=== PATIENT | female | born 1945 | race Caucasian/White ===

== ENCOUNTER → 2018-01-17 | Day surgery (SDC) | payer MEDICARE, OTHER ==
[2018-01-09 12:50] LABS: BASOPHILS % 0.5 % (0.0-1.0); EOSINOPHILS % 0.6 % (0.0-6.0); HEMATOCRIT 33.3 % (34.2-44.1); HEMOGLOBIN 11.6 g/dL (12.0-16.0); LYMPHOCYTES # (AUTO) 2.2 (1.0-3.2); MEAN CORPUSCULAR HEMOGLOBIN 31.3 pg (28-32); MEAN CORPUSCULAR HGB CONC 34.8 g/dL (31-35); MEAN CORPUSCULAR VOLUME 89.8 fL (81-99); MONOCYTES # (AUTO) 0.3 (0.2-0.8); MONOCYTES % 5.4 % (4.4-11.3); NEUTROPHILS # (AUTO) 3.7 (2.1-6.9); NEUTROPHILS % 58.2 % (38.7-80.0); PLATELET COUNT 205 x10e3/uL (140-360); RED BLOOD COUNT 3.71 x10e6/uL (3.6-5.1); RED CELL DISTRIBUTION WIDTH 12.2 % (11.7-14.4)
[~2018-01-17] MED LIST: ASPIR 8181 MG PO; ATORVASTATIN CA10 MG PO; BUTALB-ACETAMI1 EACH PO; DEXILANT60 MG PO; DICYCLOMINE HCL10 MG PO; FOLIC ACID1 MG PO; HYDROCHLOROTHIA25 MG PO; LEVOTHYROXINE50 MCG PO; LIDOCAINE HCL 2% LOCAL INJ 5 ML SDV VIAL INJ ONE; LISINOPRIL10 MG PO; PROPOFOL IV EMULSION 10 MG/ML 50 ML VIAL ONE
== END | disposition home or self-care (01) ==
LOC: OR 08:49
PROVIDERS: ATTEND Internal Medicine Gastroenterology
DX: K22.2 Esophageal obstruction (principal); K21.9 Gastro-esophageal reflux disease without esophagitis; R13.10 Dysphagia, unspecified; K59.09 Other constipation; R94.6 Abnormal results of thyroid function studies; R82.90 Unspecified abnormal findings in urine; R51 Headache; K44.9 Diaphragmatic hernia without obstruction or gangrene; E03.9 Hypothyroidism, unspecified; K29.70 Gastritis, unspecified, without bleeding; Z01.812 Encounter for preprocedural laboratory examination
CPT/HCPCS: 36415; 43233; 43239; 85025; 93005; J2001; 43450

== ENCOUNTER → 2018-05-30 | Outpatient (CLI) | payer MEDICARE, OTHER ==
[~2018-05-30] MED LIST changes: +IOPAMIDOL 370 MG/ML 200 ML INFUS..BTL INJ ONE; -LIDOCAINE HCL 2% LOCAL INJ 5 ML SDV VIAL INJ ONE; -PROPOFOL IV EMULSION 10 MG/ML 50 ML VIAL ONE; +SODIUM CHLORIDE 0.9% 50ML 50 ML ONE
[2018-05-30 10:14] LABS: BLOOD UREA NITROGEN 15 mg/dL (7-26); BUN/CREATININE RATIO 17 (6-25); CREATININE, SERUM 0.89 mg/dL (0.57-1.11); EST GLOMERULAR FILTRATION RATE > 60 ML/MIN (60-)
--- NOTE | 2018-05-30 11:04 | Diagnostic Imaging Report ---
EXAMINATION: CT of the abdomen and pelvis with contrast. TECHNIQUE: Spiral CT images of the abdomen and pelvis were performed from the lung bases to the lesser trochanters after the intravenous administration of 100 cc of Isovue 370 and the oral administration of water. Coronal and sagittal reformatted images were obtained. COMPARISON: None. CLINICAL HISTORY:Generalized abdominal pain DISCUSSION: ABDOMEN/PELVIS: LOWER THORAX:Lung bases are clear. Small bilateral fat-containing posterior diaphragmatic hernias HEPATOBILIARY: Decreased attenuation of the hepatic parenchyma compared to the spleen, consistent with steatosis. No focal hepatic lesions. No intra or extrahepatic biliary ductal dilation. GALLBLADDER: No radio-opaque stones or sludge. No wall thickening. SPLEEN: No splenomegaly. PANCREAS: No focal masses or ductal dilatation. ADRENALS: No adrenal nodules. KIDNEYS/URETERS: No hydronephrosis, stones, or solid mass lesions. Mild left pelviectasis. PELVIC ORGANS/BLADDER: Moderate to marked distention of the bladder. Mild wall thickening in the anterior aspect (series 2, image 60). No focal lesions. No adnexal masses. PERITONEUM/RETROPERITONEUM: No free air or fluid. LYMPH NODES: No intra-abdominal, retroperitoneal, pelvic or inguinal lymphadenopathy. VESSELS: The celiac trunk,superior and inferior mesenteric and bilateral renal arteries are patent The portal, superior mesenteric and splenic veins are patent. GI TRACT: No bowel dilation or evidence of obstruction. No pericolonic inflammatory changes. Mild amount of retained stool in the colon. BONES AND SOFT TISSUE: No aggressive lytic lesions. Multilevel degenerative disc changes in the lumbosacral spine, worse at L4-L5, with marked intervertebral disc space narrowing, vacuum phenomenon and grade 1-2 anterolisthesis of L4 on L5 and associated dextroscoliosis. No soft tissue abnormalities. IMPRESSION: 1. No acute abdominopelvic abnormalities. 2. Hepatic steatosis. 3. Moderate to marked distention of the bladder, with mild wall thickening. No focal lesions are identified. Correlate for cystitis. Signed by: Dr. Godwin Kennedy M.D. on 05/30/2018 11:00 AM
== END ==
LOC: CT 09:17
PROVIDERS: ATTEND Internal Medicine Gastroenterology
DX: R10.84 Generalized abdominal pain (principal)
CPT/HCPCS: 36415; 74177; 82565; 82948; 84520; Q9967